=== PATIENT | male | born 1960 | race Caucasian/White ===

== ENCOUNTER 2016-06-18 23:27 | Emergency (ER) | payer BC ==
[~2016-06-18 23:27] MED LIST: ACET65TA OR; AMLO10TA2 PO; ASPI81TA85 PO; CARV6.25 PO; GUAIFENESIN ER PO; LEVA500T OR; LISI-538 PO; LISI20TA5 OR; LOPR50TA OR; METO25TA2 OR
--- NOTE | 2016-06-19 00:48 | EDDOCDS ---
Physician Documentation [facility] Name: Dat Horne Age: 56 yrs Sex: Male : 1960 Arrival Date: 06/18/2016 Time: 23:27 Bed I5 / M5 Private MD: Mary Londono A Disposition: 06/19/16 00:39 Discharged to Home/Self Care. Impression: Contusion of foot. - Condition is Stable. - Discharge Instructions: Foot Contusion, [id number]. - Medication Reconciliation, Local Pharmacy Hours form. - Follow up: Orthopaedics, [facility]; When: Call to arrange an appointment; Reason: Further diagnostic work-up, Recheck today's complaints, Continuance of care. - Problem is new. - Symptoms are unchanged. Historical: - Allergies: PENICILLINS; - Home Meds: 1. lisinopril 20 mg Oral tab 1 tab twice a day 2. carvedilol 6.25 mg oral tab 1 tab 2 times per day 3. amlodipine 10 mg Oral tab 1 tab once daily 4. aspirin 325 mg Oral TbEC 1 tab once daily 5. valsartan-hydrochlorothiazide 320-12.5 mg oral tab 1 tab once daily - PMHx: Hypertension; Atrial Fib; - PSHx: cardaic ablation; tubes in ears; - Social history: Smoking status: Patient states was never smoker of tobacco. No barriers to communication noted, The patient speaks fluent Paraguayan, Speaks appropriately for age. - Family history: Not pertinent. - : The pt / caregiver states he / she is not on anticoagulants. Home medication list is obtained from the patient. - Exposure Risk Screening:: None identified. Vital Signs: 06/18 23:30 BP 151 / 75; Pulse 89; Resp 18 S; Temp 97.7(O); Pulse Ox 99% on R/A; Weight 111.13 kg / dd6 245 lbs (R); Height 6 ft. 2 in. (187.96 cm) (R); 23:30 Body Mass Index 31.46 (111.13 kg, 187.96 cm) dd6 MDM: 23:56 Ankle, Complete Ordered. EDMS 06/19 00:36 Crutches ordered. btw 00:46 Financial registration complete. hs2 Signatures: Dispatcher [employer] EDMS Sirisha Farrar, RN RN kmg1 Orville Rojas PA PA btw Becker, Joshua,RN RN tariqb Sharon Washington,CECIL MICHAUDN slJenn Muniz, Reg Reg hs2 MTDD
--- NOTE | 2016-06-19 00:48 | EDDOCDS ---
Nurse's Notes [facility] Name: Dat Horne Age: 56 yrs Sex: Male : 1960 Arrival Date: 06/18/2016 Time: 23:27 Bed I5 / M5 Private MD: Mary Londono A Diagnosis: Contusion of foot Presentation: 06/18 23:42 Presenting complaint: Patient states: Patient reports falling off ladder. Incident kmg1 occurred 1 p.m. this afternoon. Patient in [place], at new office opening up. Patient reports inability to place pressure on area. The patients lower extremity appears normal on examination. Adult Sepsis Screening: The patient does not have new or worsening altered mentation. Patient's respiratory rate is less than 22. Systolic blood pressure is greater than 100. Patient has a qSOFA score of 0- Negative Sepsis Screen. Suicide/Homicide risk assessment- the patient denies having any suicidal and/or homicidal ideations and does not present with any other emotional, behavioral or mental health complaints. Status: Patient is not a rehabilitation services director or dependent. Transition of care: patient was not received from another setting of care. 23:42 Acuity: QUENTIN Level 4 kmg1 23:42 Method Of Arrival: Wheelchair kmg1 Triage Assessment: 23:51 General: Appears in no apparent distress, Behavior is appropriate for age, cooperative. jmb Pain: Location: left lateral ankle Pain currently is 8 out of 10 on a pain scale. Pt Declines HIV testing. Neurological: Level of Consciousness is awake, alert, obeys commands, Oriented to person, place, time, Speech is normal, Facial symmetry appears normal, Facial symmetry: tongue is midline. Respiratory: Airway is patent Respiratory effort is even, unlabored, Respiratory pattern is regular, symmetrical. Derm: Skin is pink, warm & dry. Musculoskeletal: Capillary refill < 3 seconds No deformity noted Reports Pain is 8 out of 10 on a pain scale. Historical: - Allergies: PENICILLINS; - Home Meds: 1. lisinopril 20 mg Oral tab 1 tab twice a day 2. carvedilol 6.25 mg oral tab 1 tab 2 times per day 3. amlodipine 10 mg Oral tab 1 tab once daily 4. aspirin 325 mg Oral TbEC 1 tab once daily 5. valsartan-hydrochlorothiazide 320-12.5 mg oral tab 1 tab once daily - PMHx: Hypertension; Atrial Fib; - PSHx: cardaic ablation; tubes in ears; - Social history: Smoking status: Patient states was never smoker of tobacco. No barriers to communication noted, The patient speaks fluent Frisian, Speaks appropriately for age. - Family history: Not pertinent. - : The pt / caregiver states he / she is not on anticoagulants. Home medication list is obtained from the patient. - Exposure Risk Screening:: None identified. Screenin/29 00:45 Screening information is obtained from the patient. Fall risk: No risks identified. slm Assistance ADL's: requires no assistance with activities of daily living. Abuse/DV Screen: The patient / caregiver reports he/she is: not in a situation that causes fear, pain or injury. Nutritional screening: No deficits noted. Advance Directives: Currently, there is no health care proxy. There is no active DNR order. There is no living will. There is no Power of Company Controller. Advance directive information has not previously been placed in an [facility] medical record. Further advance directive information is declined. home support is adequate. Assessment: 00:44 General: Appears in no apparent distress, comfortable, Behavior is cooperative. Pain: slm Location: left lateral ankle. Musculoskeletal: Circulation, motion, and sensation intact. 00:46 Musculoskeletal: Capillary refill < 3 seconds Signs and Symptoms of Compartment slm Syndrome: no signs of compartment syndrome. Vital Signs: 06/18 23:30 BP 151 / 75; Pulse 89; Resp 18 S; Temp 97.7(O); Pulse Ox 99% on R/A; Weight 111.13 kg dd6 (R); Height 6 ft. 2 in. (187.96 cm) (R); 23:30 Body Mass Index 31.46 (111.13 kg, 187.96 cm) dd6 Vitals: 23:30 Log In Time: June 18, 2016 at 23:28. dd6 ED Course: 23:30 Patient visited by James Blanco PCA. dd6 23:30 Mary Londono is Private Physician. dd6 23:30 Patient moved to Waiting dd6 23:31 Patient moved to Pre RCE dd6 23:44 Triage Initiated kmg1 06/19 00:27 Orville Rojas PA is PHCP. btw 00:27 Kumar Barba DO is Attending Physician. btw 00:27 Patient visited by Orville Rojas PA. btw 00:27 [facility] btw 00:46 Patient visited by Sharon Washington LPN. slm 00:46 The patient / caregiver is instructed regarding the plan of care and ED course. Patient slm has correct armband on for positive identification. Bed in low position. Call light in reach. Side rails up X 1. 00:46 No IV's were initiated during this patient's visit. No procedures done that require slm assistance. Order Results: There are currently no results for this order. Outcome: 00:39 Discharge ordered by Provider. btw 00:45 Discharge Assessment: Patient awake, alert and oriented x 3. No cognitive and/or slm functional deficits noted. Patient verbalized understanding of disposition instructions. patient administered narcotics - no. The following High Risk Discharge criteria are identified: None. Condition: good. Discharge instructions given to patient, Instructed on discharge instructions, follow up and referral plans. Demonstrated understanding of instructions, crutch walking, Pt was receptive of discharge instructions/ teaching. No special radiology studies were completed. Property :Personal belongings accompany Pt. 00:47 Patient left the ED. slm Signatures: Sirisha Farrar, RN RN kmg1 James Blanco, [employer] dd6 Orville Rojas PA PA btw Becker, Joshua, RN RN jmb McIntyre, Stephanie, LPN LPN slm MTDD
--- NOTE | 2016-06-20 11:09 | REP ---
Left ankle four views : There is no fracture or dislocation. Mineralization and joint spaces are normal. There are no calcifications or foreign bodies. Impression: Negative left ankle . Signed by Mor Garcia MD 06/19/2016 08:57 A
--- NOTE | 2016-06-21 01:48 | EDDOCDS ---
Physician Documentation [facility] Name: Dat Horne Age: 56 yrs Sex: Male : 1960 Arrival Date: 06/18/2016 Time: 23:27 Bed I5 / M5 Private MD: Mary Londono A Disposition: 06/19/16 00:39 Discharged to Home/Self Care. Impression: Contusion of foot. - Condition is Stable. - Discharge Instructions: Foot Contusion, [id number]. - Medication Reconciliation, Local Pharmacy Hours form. - Follow up: Orthopaedics, [facility]; When: Call to arrange an appointment; Reason: Further diagnostic work-up, Recheck today's complaints, Continuance of care. - Problem is new. - Symptoms are unchanged. Historical: - Allergies: PENICILLINS; - Home Meds: 1. lisinopril 20 mg Oral tab 1 tab twice a day 2. carvedilol 6.25 mg oral tab 1 tab 2 times per day 3. amlodipine 10 mg Oral tab 1 tab once daily 4. aspirin 325 mg Oral TbEC 1 tab once daily 5. valsartan-hydrochlorothiazide 320-12.5 mg oral tab 1 tab once daily - PMHx: Hypertension; Atrial Fib; - PSHx: cardaic ablation; tubes in ears; - Social history: Smoking status: Patient states was never smoker of tobacco. No barriers to communication noted, The patient speaks fluent Malawian, Speaks appropriately for age. - Family history: Not pertinent. - : The pt / caregiver states he / she is not on anticoagulants. Home medication list is obtained from the patient. - Exposure Risk Screening:: None identified. Vital Signs: 06/18 23:30 BP 151 / 75; Pulse 89; Resp 18 S; Temp 97.7(O); Pulse Ox 99% on R/A; Weight 111.13 kg / dd6 245 lbs (R); Height 6 ft. 2 in. (187.96 cm) (R); 23:30 Body Mass Index 31.46 (111.13 kg, 187.96 cm) dd6 MDM: 23:56 Ankle, Complete Ordered. EDMS 06/19 00:36 Crutches ordered. btw 00:46 Financial registration complete. hs2 00:49 COUNTS INCLUDE 234 BEDS AT THE [facility] Payment Agreement was scanned into [employer] and attached to record. hs2 21:29 T-Sheet-- Draft Copy was scanned into [employer] and attached to record. klr Signatures: Dispatcher [employer] EDSirisha Son RN RN kmg1 Orville Rojas PA PA btw Becker, Joshua, RN RN Sharon Bowser,CECIL MEDICAL TECH slm Jenn Atkins, Reg Reg hs2 Sonya Melo klr The chart was reviewed and I authenticate all verbal orders and agree with the evaluation and treatment provided.Attachments: 00:49 COUNTS INCLUDE 234 BEDS AT THE [facility] Payment Agreement hs2 21:29 T-Sheet-- Draft Copy klr Chart Complete MTDD
--- NOTE | 2016-06-21 01:48 | EDDOCDS ---
Nurse's Notes [facility] Name: Dat Horne Age: 56 yrs Sex: Male : 1960 Arrival Date: 06/18/2016 Time: 23:27 Bed I5 / M5 Private MD: Mary Londono A Diagnosis: Contusion of foot Presentation: 06/18 23:42 Presenting complaint: Patient states: Patient reports falling off ladder. Incident kmg1 occurred 1 p.m. this afternoon. Patient in [place], at new office opening up. Patient reports inability to place pressure on area. The patients lower extremity appears normal on examination. Adult Sepsis Screening: The patient does not have new or worsening altered mentation. Patient's respiratory rate is less than 22. Systolic blood pressure is greater than 100. Patient has a qSOFA score of 0- Negative Sepsis Screen. Suicide/Homicide risk assessment- the patient denies having any suicidal and/or homicidal ideations and does not present with any other emotional, behavioral or mental health complaints. Status: Patient is not a administrative services director or dependent. Transition of care: patient was not received from another setting of care. 23:42 Acuity: QUENTIN Level 4 kmg1 23:42 Method Of Arrival: Wheelchair kmg1 Triage Assessment: 23:51 General: Appears in no apparent distress, Behavior is appropriate for age, cooperative. jmb Pain: Location: left lateral ankle Pain currently is 8 out of 10 on a pain scale. Pt Declines HIV testing. Neurological: Level of Consciousness is awake, alert, obeys commands, Oriented to person, place, time, Speech is normal, Facial symmetry appears normal, Facial symmetry: tongue is midline. Respiratory: Airway is patent Respiratory effort is even, unlabored, Respiratory pattern is regular, symmetrical. Derm: Skin is pink, warm & dry. Musculoskeletal: Capillary refill < 3 seconds No deformity noted Reports Pain is 8 out of 10 on a pain scale. Historical: - Allergies: PENICILLINS; - Home Meds: 1. lisinopril 20 mg Oral tab 1 tab twice a day 2. carvedilol 6.25 mg oral tab 1 tab 2 times per day 3. amlodipine 10 mg Oral tab 1 tab once daily 4. aspirin 325 mg Oral TbEC 1 tab once daily 5. valsartan-hydrochlorothiazide 320-12.5 mg oral tab 1 tab once daily - PMHx: Hypertension; Atrial Fib; - PSHx: cardaic ablation; tubes in ears; - Social history: Smoking status: Patient states was never smoker of tobacco. No barriers to communication noted, The patient speaks fluent Japanese, Speaks appropriately for age. - Family history: Not pertinent. - : The pt / caregiver states he / she is not on anticoagulants. Home medication list is obtained from the patient. - Exposure Risk Screening:: None identified. Screenin/29 00:45 Screening information is obtained from the patient. Fall risk: No risks identified. slm Assistance ADL's: requires no assistance with activities of daily living. Abuse/DV Screen: The patient / caregiver reports he/she is: not in a situation that causes fear, pain or injury. Nutritional screening: No deficits noted. Advance Directives: Currently, there is no health care proxy. There is no active DNR order. There is no living will. There is no Power of Field Reviewer. Advance directive information has not previously been placed in an [facility] medical record. Further advance directive information is declined. home support is adequate. Assessment: 00:44 General: Appears in no apparent distress, comfortable, Behavior is cooperative. Pain: slm Location: left lateral ankle. Musculoskeletal: Circulation, motion, and sensation intact. 00:46 Musculoskeletal: Capillary refill < 3 seconds Signs and Symptoms of Compartment slm Syndrome: no signs of compartment syndrome. Vital Signs: 06/18 23:30 BP 151 / 75; Pulse 89; Resp 18 S; Temp 97.7(O); Pulse Ox 99% on R/A; Weight 111.13 kg dd6 (R); Height 6 ft. 2 in. (187.96 cm) (R); 23:30 Body Mass Index 31.46 (111.13 kg, 187.96 cm) dd6 Vitals: 23:30 Log In Time: June 18, 2016 at 23:28. dd6 ED Course: 23:30 Patient visited by James Blanco PCA. dd6 23:30 Mary Londono is Private Physician. dd6 23:30 Patient moved to Waiting dd6 23:31 Patient moved to Pre RCE dd6 23:44 Triage Initiated kmg1 06/19 00:27 Orville Rojas PA is PHCP. btw 00:27 Kumar Barba DO is Attending Physician. btw 00:27 Patient visited by Orville Rojas PA. btw 00:27 Patient moved to I / [facility] btw 00:46 Patient visited by Sharon Washington LPN. slm 00:46 The patient / caregiver is instructed regarding the plan of care and ED course. Patient slm has correct armband on for positive identification. Bed in low position. Call light in reach. Side rails up X 1. 00:46 No IV's were initiated during this patient's visit. No procedures done that require slm assistance. 00:49 [facility] [place] [place] Payment Agreement was scanned into [employer] and attached to record. hs2 21:29 T-Sheet-- Draft Copy was scanned into [employer] and attached to record. klr 01 11:19 Ankle, Complete Returned. EDMS Order Results: Radiology Order: Ankle, Complete Test: Ankle, Complete REASON FOR EXAMINATION: Trauma; Left ankle four views :; ; There is no fracture or dislocation.; ; Mineralization and joint spaces are normal.; ; There are no calcifications or foreign bodies.; ; Impression:; ; Negative left ankle .; ; ; Signed by; Mor Garcia MD 06/19/2016 08:57 A; Outcome: 06/19 00:39 Discharge ordered by Provider. btw 00:45 Discharge Assessment: Patient awake, alert and oriented x 3. No cognitive and/or slm functional deficits noted. Patient verbalized understanding of disposition instructions. patient administered narcotics - no. The following High Risk Discharge criteria are identified: None. Condition: good. Discharge instructions given to patient, Instructed on discharge instructions, follow up and referral plans. Demonstrated understanding of instructions, crutch walking, Pt was receptive of discharge instructions/ teaching. No special radiology studies were completed. Property :Personal belongings accompany Pt. 00:47 Patient left the ED. slm Signatures: [facility] Sirisha Farrar, JOSS RN kmg1 James Blanco, COMMERCIAL ACCOUNT MANAGER COMMERCIAL ACCOUNT MANAGER dd6 Orville Rojas PA PA btw Dusty Andujar RN RN jmb McIntyre, Stephanie, LPN LPN slm Jenn Atkins, Reg Reg hs2 RedSonya wall Chart Complete CAROLD
--- NOTE | 2016-06-21 01:48 | EDDOCDS ---
Physician Documentation [facility] Name: Dat Horne Age: 56 yrs Sex: Male : 1960 Arrival Date: 06/18/2016 Time: 23:27 Bed I5 / M5 Private MD: Mary Londono A Disposition: 06/19/16 00:39 Discharged to Home/Self Care. Impression: Contusion of foot. - Condition is Stable. - Discharge Instructions: Foot Contusion, [id number]. - Medication Reconciliation, Local Pharmacy Hours form. - Follow up: Orthopaedics, [facility]; When: Call to arrange an appointment; Reason: Further diagnostic work-up, Recheck today's complaints, Continuance of care. - Problem is new. - Symptoms are unchanged. Historical: - Allergies: PENICILLINS; - Home Meds: 1. lisinopril 20 mg Oral tab 1 tab twice a day 2. carvedilol 6.25 mg oral tab 1 tab 2 times per day 3. amlodipine 10 mg Oral tab 1 tab once daily 4. aspirin 325 mg Oral TbEC 1 tab once daily 5. valsartan-hydrochlorothiazide 320-12.5 mg oral tab 1 tab once daily - PMHx: Hypertension; Atrial Fib; - PSHx: cardaic ablation; tubes in ears; - Social history: Smoking status: Patient states was never smoker of tobacco. No barriers to communication noted, The patient speaks fluent Cymraes, Speaks appropriately for age. - Family history: Not pertinent. - : The pt / caregiver states he / she is not on anticoagulants. Home medication list is obtained from the patient. - Exposure Risk Screening:: None identified. Vital Signs: 06/18 23:30 BP 151 / 75; Pulse 89; Resp 18 S; Temp 97.7(O); Pulse Ox 99% on R/A; Weight 111.13 kg / dd6 245 lbs (R); Height 6 ft. 2 in. (187.96 cm) (R); 23:30 Body Mass Index 31.46 (111.13 kg, 187.96 cm) dd6 MDM: 23:56 Ankle, Complete Ordered. EDMS 06/19 00:36 Crutches ordered. btw 00:46 Financial registration complete. hs2 00:49 [facility] Payment Agreement was scanned into [employer] and attached to record. hs2 21:29 T-Sheet-- Draft Copy was scanned into [employer] and attached to record. klr Signatures: Dispatcher [employer] EDSirisha Son RN RN kmg1 Orville Rojas PA PA btw Becker, Joshua, RN RN Sharon Bowser,CECIL MANAGER FRONT OFFICE slm Jenn Atkins, Reg Reg hs2 Sonya Melo klr The chart was reviewed and I authenticate all verbal orders and agree with the evaluation and treatment provided.Attachments: 00:49 [facility] Payment Agreement hs2 21:29 T-Sheet-- Draft Copy klr Chart Complete MTDD
== END 2016-06-19 00:47 | disposition home or self-care (01) ==
LOC: M ED 23:27
DX: S90.32XA Contusion of left foot, initial encounter (principal); W11.XXXA Fall on and from ladder, initial encounter; Y92.019 Unspecified place in single-family (private) house as the place of occurrence of the external cause; Y93.89 Activity, other specified; Y99.8 Other external cause status; I10 Essential (primary) hypertension; I48.91 Unspecified atrial fibrillation; Z79.82 Long term (current) use of aspirin; Z79.899 Other long term (current) drug therapy; Z88.0 Allergy status to penicillin

== ENCOUNTER → 2017-02-03 | Outpatient (REF) | payer BC ==
[2017-02-03 12:45] LABS: CREATININE FOR GFR 1.32 MG/DL (0.70-1.30); GLOMERULAR FILTRATION RATE 59.9 (>56); POTASSIUM SERUM 3.8 MEQ/L (3.5-5.1)
[2017-02-10 15:24] LABS: ALDOSTERONE 8.4 ng/dL (0.0-30.0)
== END ==
LOC: M LAB REF 10:16
PROVIDERS: ATTEND Internal Medicine Cardiovascular Disease
DX: I10 Essential (primary) hypertension (principal)

== ENCOUNTER → 2017-05-26 | Outpatient (CLI) | payer BC | LOC: M WUC 18:53 | DX: M25.511 Pain in right shoulder (principal) | CPT/HCPCS: 73030 ==

== ENCOUNTER → 2017-07-24 | Outpatient (CLI) | payer BC | LOC: M WUC 18:46 | DX: M19.011 Primary osteoarthritis, right shoulder (principal) | CPT/HCPCS: 73030 ==

== ENCOUNTER → 2017-12-12 | Outpatient (REF) | payer BC ==
[2017-12-12 12:58] LABS: TOTAL 25(OH) VITAMIN D 39.4 NG/ML (30.0-100.0)
[2017-12-12 13:00] LABS: ALBUMIN 4.3 GM/DL (3.2-5.2); ALBUMIN/GLOBULIN RATIO 1.48 (1.00-1.93); ALKALINE PHOSPHATASE 67 U/L (45-117); ALT/SGPT 32 U/L (12-78); ANION GAP 7 MEQ/L (8-16); AST/SGOT 11 U/L (7-37); BILIRUBIN,TOTAL 0.4 MG/DL (0.2-1.0); BLOOD UREA NITROGEN 18 MG/DL (7-18); CALCIUM LEVEL 8.8 MG/DL (8.5-10.1); CARBON DIOXIDE LEVEL 29 MEQ/L (21-32); CHLORIDE LEVEL 106 MEQ/L (98-107); CHOLESTEROL LEVEL 157 MG/DL (<200); CHOLESTEROL RISK RATIO 4.025 (<5); GLOMERULAR FILTRATION RATE > 60.0 (>56); GLUCOSE, FASTING 86 MG/DL (70-100); HDL CHOLESTEROL 39 MG/DL (>40); LDL CHOLESTEROL 91.6 MG/DL (<100); NON-HDL-C 118 MG/DL; SODIUM LEVEL 142 MEQ/L (136-145); TOTAL PROTEIN 7.2 GM/DL (6.4-8.2); TRIGLYCERIDES LEVEL 132 MG/DL (<150)
== END ==
LOC: M LABDRAW1 11:30
DX: E78.2 Mixed hyperlipidemia (principal); E55.9 Vitamin D deficiency, unspecified; I10 Essential (primary) hypertension

== ENCOUNTER → 2018-02-23 | Outpatient (REF) | payer BC ==
[2018-02-23 12:49] LABS: ANION GAP 7 MEQ/L (8-16); BLOOD UREA NITROGEN 23 MG/DL (7-18); CALCIUM LEVEL 8.9 MG/DL (8.5-10.1); CARBON DIOXIDE LEVEL 32 MEQ/L (21-32); CHLORIDE LEVEL 100 MEQ/L (98-107); CREATININE FOR GFR 1.47 MG/DL (0.70-1.30); GLOMERULAR FILTRATION RATE 52.8 (>56); GLUCOSE, FASTING 94 MG/DL (70-100); SODIUM LEVEL 139 MEQ/L (136-145)
== END ==
LOC: M LABDRAW1 11:53
DX: I10 Essential (primary) hypertension (principal)
CPT/HCPCS: 80048

== ENCOUNTER → 2018-10-19 | Outpatient (REF) | payer BC ==
[~2018-10-19] MED LIST changes: -AMLO10TA2 PO; +AMLO10TA5 PO
[2018-10-19 12:52] LABS: BLOOD UREA NITROGEN 27 MG/DL (7-18); CALCIUM LEVEL 9.3 MG/DL (8.5-10.1); CARBON DIOXIDE LEVEL 29 MEQ/L (21-32); CHLORIDE LEVEL 105 MEQ/L (98-107); CREATININE FOR GFR 1.25 MG/DL (0.70-1.30); GLOMERULAR FILTRATION RATE > 60.0 (>56); GLUCOSE, FASTING 94 MG/DL (70-100); POTASSIUM SERUM 3.8 MEQ/L (3.5-5.1); SODIUM LEVEL 139 MEQ/L (136-145)
== END ==
LOC: M LABDRAW1 11:54
PROVIDERS: ATTEND Internal Medicine Cardiovascular Disease
DX: I10 Essential (primary) hypertension (principal)

== ENCOUNTER → 2019-05-21 | Outpatient (REF) | payer BC ==
[2019-05-21 12:09] LABS: BASO % 0.7 % (0.0-1.0); EOS # 0.1 10^3/uL (0.0-0.5); EOS % 2.4 % (0.0-3.0); HEMATOCRIT 43.2 % (42.0-52.0); HEMOGLOBIN 14.3 g/dl (13.5-17.5); LYMPH # 1.2 10^3/uL (1.5-5.0); LYMPH % 26.7 % (24.0-44.0); MEAN CORPUSCULAR HEMOGLOBIN 29.4 pg (27.0-33.0); MEAN CORPUSCULAR HGB CONC 33.1 g/dl (32.0-36.5); MEAN CORPUSCULAR VOLUME 88.7 fl (80.0-96.0); MONO # 0.3 10^3/uL (0.0-0.8); MONO % 7.6 % (0.0-5.0); NEUTROPHILS # 2.8 10^3/uL (1.5-8.5); NEUTROPHILS % 62.2 % (36.0-66.0); PLATELET COUNT, AUTOMATED 198 10^3/uL (150-450); RED BLOOD COUNT 4.87 10^6/uL (4.30-6.10); WHITE BLOOD COUNT 4.5 10^3/uL (4.0-10.0)
[2019-05-21 12:17] LABS: CALCIUM LEVEL 8.6 MG/DL (8.5-10.1); CREATININE FOR GFR 1.31 MG/DL (0.70-1.30); POTASSIUM SERUM 3.7 MEQ/L (3.5-5.1)
[2019-05-21 12:18] LABS: ALBUMIN 4.1 GM/DL (3.2-5.2); BILIRUBIN,TOTAL 0.4 MG/DL (0.2-1.0); CHOLESTEROL RISK RATIO 4.783 (<5); TOTAL PROTEIN 6.7 GM/DL (6.4-8.2)
[2019-05-21 12:23] LABS: TOTAL 25(OH) VITAMIN D 22.2 NG/ML (30.0-100.0)
== END ==
LOC: M LABDRAW1 11:55
PROVIDERS: ATTEND Physician Assistant
DX: I10 Essential (primary) hypertension (principal); E78.2 Mixed hyperlipidemia; E55.9 Vitamin D deficiency, unspecified; G47.33 Obstructive sleep apnea (adult) (pediatric)

== ENCOUNTER → 2020-03-02 | Outpatient (CLI) | payer BC ==
[~2020-03-02] MED LIST changes: -AMLO10TA5 PO; +AMLO1TAB25 PO; +ASPI325T55 PO; -ASPI81TA85 PO; +ASPI81TA86 PO; +CHLO25TA PO; +DILT1CAP PO; +EPLE25TA PO; +IRBE300T7 PO; +OMEP1CAP73 PO
== END ==
LOC: M LABSMTC 09:33
PROVIDERS: ATTEND Anesthesiology
DX: Z01.812 Encounter for preprocedural laboratory examination (principal); Z20.828 Contact with and (suspected) exposure to other viral communicable diseases
CPT/HCPCS: C9803; U0003

== ENCOUNTER 2020-03-06 07:41 | Day surgery (SDC) | payer BC ==
[~2020-03-06] VITALS: Ht 185.4 cm; Wt 108.9 kg
[~2020-03-06 07:41] MED LIST changes: +LR 1,000 ML IV ONE
[2020-03-06] MEDS ORDERED: BUPIVACAINE/EPIN 0.5% 30 ML VIAL As Ordered ONE (09:33)
[2020-03-06] MEDS ORDERED: LIDOCAINE 2% 100MG/5ML SDV (FOR ANES.) As Ordered ONE (09:48)
[2020-03-06] MEDS ORDERED: propofoL 200 MG/20 ML VIAL As Ordered ONE (09:48)
[2020-03-06] MEDS ORDERED: ROCURONIUM BROMIDE 50 MG/5 ML VIAL As Ordered ONE (09:48)
[2020-03-06] MEDS ORDERED: fentaNYL 250 MCG/5 ML INJECTION (J3010) As Ordered ONE (09:48)
[2020-03-06] MEDS ORDERED: MIDAZOLAM INJ 2MG/2ML VIAL (J2250 PER 1MG) As Ordered ONE (09:49)
[2020-03-06] MEDS ORDERED: ePHEDrine SULFATE 25 MG/5 ML(5MG/ML) SYRINGE As Ordered ONE (10:28)
[2020-03-06] MEDS ORDERED: dexameTHASONE 4 MG/ML 1ML VIAL (J1100 PER 1MG) As Ordered ONE (10:41)
[2020-03-06] MEDS ORDERED: ONDANSETRON 4MG/2ML VIAL As Ordered ONE (10:41)
[2020-03-06] MEDS ORDERED: KETOROLAC 60MG 2ML VIAL As Ordered ONE (10:41)
[2020-03-06] MEDS ORDERED: ACETAMINOPHEN 1000MG 100ML IV BTL (OFIRMEV) (J0131 PER 10MG) As Ordered ONE (10:42)
[2020-03-06] MEDS ORDERED: SUGAMMADEX SODIUM 500 MG/5 ML VIAL (BRIDION) As Ordered ONE (10:45)
[2020-03-06] MEDS ORDERED: oxyCODONE 5MG TAB As Ordered ONE (11:36)
[2020-03-06] MEDS ORDERED: MORPHINE 2 MG/ML 1ML VIAL (J2270) IV PRN (12:00)
[2020-03-06] MEDS ORDERED: NORCO, ANEXSIA 5/325MG TABLET (HYDROcodone/ACETAMINOPHEN) PO PRN (12:00)
[2020-03-06] MEDS ORDERED: fentaNYL 100 MCG/2 ML INJECTION (J3010) IV PRN (12:00)
[2020-03-06] MEDS ORDERED: oxyCODONE 5MG TAB PO PRN (12:00)
[2020-03-06] MEDS ORDERED: ONDANSETRON 4MG/2ML VIAL IV PRN (12:00)
[2020-03-06] MEDS ORDERED: LR 1,000 ML IV SCH (12:00)
[2020-03-06] MEDS ORDERED: METOCLOPRAMIDE INJ 10MG/2ML VIAL (J2765 PER 1) IV PRN (12:00)
[2020-03-06 13:03] VITALS: BP 113/63
--- NOTE | 2020-03-09 08:44 | RO ---
DATE OF OPERATION: 03/06/2020 PREOPERATIVE DIAGNOSIS: Symptomatic cholelithiasis. POSTOPERATIVE DIAGNOSIS: Symptomatic cholelithiasis. PROCEDURE: Robotic cholecystectomy. SURGEON: Mor Sequeira DO ASSIST: None. ANESTHESIA: General. EBL: 15. COMPLICATIONS: None. INDICATIONS FOR PROCEDURE: The patient is a 60-year-old male who presents with right upper quadrant pain and found to have symptomatic cholelithiasis. Recommendation was to proceed with a robotic cholecystectomy. Risks and benefits of the procedure not limited to but including bleeding, infection, hernia formation, damage to surrounding structures and need for further surgery were discussed in detail with the patient. Informed consent was obtained and procedure was planned. PROCEDURE: The patient was brought back to operating room 7. After sufficient sedation, the abdomen was sterilely prepped and draped. Next, time out was done to confirm proper patient and proper procedure. Following that, an 8 mm incision was made in the left upper quadrant, Veress needle was inserted, and the abdomen was insufflated to 15 mmHg. Veress needle was then removed and an 8 mm Optiview port was used to gain access to the abdomen. Once the abdomen was entered, two more ports were placed, one in the midline and one in the right mid abdomen and then another one in the right upper quadrant laterally. The ports were then connected to the robot. The abdomen was examined from the console. The fundus of the gallbladder was elevated up towards the right shoulder. Cystic duct and cystic artery were carefully dissected free using combination of blunt and sharp dissection. Once they were both identified they were both doubly clipped and cut. The gallbladder was then dissected free from the gallbladder fossa using electrocautery. It was then placed inside of a 5 mm Endo Catch bag and brought out through the right lateral port site. Once the gallbladder was removed, the abdomen was examined. The fascia and the peritoneum at the right lateral port site were then closed from inside using running 3-0 V-Loc suture. Once that was completed, the abdomen was desufflated. Skin incisions were closed with 4-0 Vicryl subcuticular sutures. The abdomen was cleaned and dried. Steri-Strips, 4 x 4 and tape were applied. [facility]
== END 2020-03-06 14:50 | disposition home or self-care (01) ==
LOC: M SDC 07:41
PROVIDERS: ATTEND Surgery
DX: K80.10 Calculus of gallbladder with chronic cholecystitis without obstruction (principal); I10 Essential (primary) hypertension; I48.91 Unspecified atrial fibrillation; G47.33 Obstructive sleep apnea (adult) (pediatric); Z79.82 Long term (current) use of aspirin; Z79.899 Other long term (current) drug therapy; Z88.0 Allergy status to penicillin
CPT/HCPCS: 47562; 88304; J0131; J1100; J1885; J2250; J2405; J3010; S2900

== ENCOUNTER → 2020-06-09 | Outpatient (CLI) | payer BC ==
[~2020-06-09] MED LIST changes: -LISI-538 PO; +LISI20TA33 PO; -LR 1,000 ML IV ONE
[2020-06-09 10:33] LABS: BLOOD UREA NITROGEN 28 MG/DL (7-18); CALCIUM LEVEL 8.9 MG/DL (8.5-10.1); CARBON DIOXIDE LEVEL 32 MEQ/L (21-32); CHLORIDE LEVEL 107 MEQ/L (98-107); CHOLESTEROL LEVEL 175 MG/DL (<200); CREATININE FOR GFR 1.26 MG/DL (0.70-1.30); GLOMERULAR FILTRATION RATE > 60.0 (>56); GLUCOSE, FASTING 107 MG/DL (70-100); HDL CHOLESTEROL 35 MG/DL (>40); LDL CHOLESTEROL 114 MG/DL (<100); NON-HDL-C 140 MG/DL; POTASSIUM SERUM 4.1 MEQ/L (3.5-5.1); SODIUM LEVEL 142 MEQ/L (136-145); TRIGLYCERIDES LEVEL 128 MG/DL (<150)
== END ==
LOC: M WUC 08:38
PROVIDERS: ATTEND Physician Assistant Medical
DX: E78.2 Mixed hyperlipidemia (principal); E55.9 Vitamin D deficiency, unspecified

== ENCOUNTER → 2020-11-23 | Outpatient (CLI) | payer BC ==
[2020-11-23 14:25] LABS: HEMOGLOBIN 14.2 g/dl (13.5-17.5); MEAN CORPUSCULAR HEMOGLOBIN 29.3 pg (27.0-33.0); MEAN CORPUSCULAR HGB CONC 33.8 g/dl (32.0-36.5); MEAN CORPUSCULAR VOLUME 86.6 fl (80.0-96.0); PLATELET COUNT, AUTOMATED 211 10^3/uL (150-450); RED BLOOD COUNT 4.85 10^6/uL (4.30-6.10); WHITE BLOOD COUNT 6.7 10^3/uL (4.0-10.0)
[2020-11-23 15:04] LABS: BLOOD UREA NITROGEN 26 MG/DL (7-18); CALCIUM LEVEL 8.6 MG/DL (8.5-10.1); CARBON DIOXIDE LEVEL 27 MEQ/L (21-32); CHLORIDE LEVEL 107 MEQ/L (98-107); CREATININE FOR GFR 1.13 MG/DL (0.70-1.30); GLOMERULAR FILTRATION RATE > 60.0 (>56); GLUCOSE, FASTING 88 MG/DL (70-100); POTASSIUM SERUM 3.7 MEQ/L (3.5-5.1); SODIUM LEVEL 140 MEQ/L (136-145)
== END ==
LOC: M WUC 10:20
PROVIDERS: ATTEND Internal Medicine Cardiovascular Disease
DX: I48.0 Paroxysmal atrial fibrillation (principal)

== ENCOUNTER → 2021-02-04 | Outpatient (CLI) | payer BC ==
[2021-02-04 11:45] LABS: APPEARANCE, URINE CLEAR (CLEAR); BILIRUBIN, URINE AUTO NEGATIVE (NEGATIVE); BLOOD, URINE BLOOD NEGATIVE (NEGATIVE); COLOR, URINE YELLOW (YELLOW); GLUCOSE, URINE (UA) AUTO NEGATIVE (NEGATIVE); KETONE, URINE AUTO NEGATIVE (NEGATIVE); LEUKOCYTE ESTERASE, URINE AUTO NEGATIVE (NEGATIVE); NITRITE, URINE AUTO NEGATIVE (NEGATIVE); PROTEIN, URINE AUTO NEGATIVE (NEGATIVE); SPECIFIC GRAVITY URINE AUTO 1.028 (1.002-1.035); UROBILINOGEN, URINE AUTO 0.2 mg/dL (0.0-2.0)
[2021-02-04 11:52] LABS: BACTERIA, URINE AUTO NEGATIVE (NEGATIVE); MUCUS, URINE SMALL (NEGATIVE); RBC, URINE AUTO 3 /HPF (0-3); SQUAMOUS EPITHELIAL CELL UR AU 0 /HPF (0-6); WBC, URINE AUTO 1 /HPF (0-3)
[2021-02-04 12:06] LABS: BASO % 0.7 % (0.0-1.0); EOS # 0.2 10^3/uL (0.0-0.5); EOS % 3.2 % (0.0-3.0); HEMATOCRIT 42.1 % (42.0-52.0); HEMOGLOBIN 14.3 g/dl (13.5-17.5); LYMPH # 1.4 10^3/uL (1.5-5.0); LYMPH % 25.3 % (24.0-44.0); MEAN CORPUSCULAR HEMOGLOBIN 29.8 pg (27.0-33.0); MEAN CORPUSCULAR VOLUME 87.7 fl (80.0-96.0); MONO # 0.5 10^3/uL (0.0-0.8); MONO % 9.3 % (2.0-8.0); NEUTROPHILS # 3.4 10^3/uL (1.5-8.5); PLATELET COUNT, AUTOMATED 256 10^3/uL (150-450); WHITE BLOOD COUNT 5.6 10^3/uL (4.0-10.0)
[2021-02-04 12:32] LABS: ALBUMIN 4.1 GM/DL (3.2-5.2); ALT/SGPT 58 U/L (12-78); BILIRUBIN,DIRECT < 0.1 MG/DL (0.0-0.2); BILIRUBIN,TOTAL 0.4 MG/DL (0.2-1.0); BLOOD UREA NITROGEN 24 MG/DL (7-18); CALCIUM LEVEL 9.2 MG/DL (8.5-10.1); CARBON DIOXIDE LEVEL 28 MEQ/L (21-32); CHLORIDE LEVEL 109 MEQ/L (98-107); CREATININE FOR GFR 1.28 MG/DL (0.70-1.30); GLOMERULAR FILTRATION RATE > 60.0 (>56); GLUCOSE, FASTING 94 MG/DL (70-100); LDH LACTATE DEHYDROGENASE 158 U/L (87-241); POTASSIUM SERUM 4.1 MEQ/L (3.5-5.1); SODIUM LEVEL 141 MEQ/L (136-145)
[2021-02-04 13:25] LABS: ERYTHROCYTE SEDIMENTATION RATE 12 mm/hr (0-20)
--- NOTE | 2021-02-04 17:52 | REP ---
INDICATION: ABNORMAL WEIGHT LOSS COMPARISON: 05/24/2010 TECHNIQUE: PA and lateral. FINDINGS: The mediastinum and cardiac silhouette are normal. The lung blancas are clear and without acute consolidation, effusion, or pneumothorax. The skeletal structures are intact and normal. Loop recorder identified overlying the left mid lung zone. IMPRESSION: No acute cardiopulmonary process. <Electronically signed by Heri Rice > 02/04/21 [id number]
== END ==
LOC: M WUC 09:38
PROVIDERS: ATTEND Nurse Practitioner Family
DX: R63.4 Abnormal weight loss (principal)

== ENCOUNTER → 2021-02-10 | Outpatient (REF) | payer BC | LOC: M WUC 16:17 | PROVIDERS: ATTEND Nurse Practitioner Family | DX: R63.4 Abnormal weight loss (principal) ==

== ENCOUNTER → 2021-02-11 | Outpatient (REF) | payer BC | LOC: M LAB REF 16:20 | PROVIDERS: ATTEND Nurse Practitioner Family | DX: R63.4 Abnormal weight loss (principal) ==

== ENCOUNTER → 2021-03-22 | Outpatient (CLI) | payer BC | LOC: M LABSMTC 09:26 | PROVIDERS: ATTEND Student in an Organized Health Care Education/Training Program | DX: Z01.812 Encounter for preprocedural laboratory examination (principal); Z20.822 Contact with and (suspected) exposure to COVID-19 ==

== ENCOUNTER → 2022-03-18 | Outpatient (CLI) | payer BC ==
[2022-03-18 14:16] LABS: CREATININE FOR GFR 1.33 MG/DL (0.70-1.30); GLOMERULAR FILTRATION RATE 58.4 (>49); POTASSIUM SERUM 3.7 MEQ/L (3.5-5.1)
== END ==
LOC: M WUC 09:34
PROVIDERS: ATTEND Orthopaedic Surgery
DX: D17.21 Benign lipomatous neoplasm of skin and subcutaneous tissue of right arm (principal); M75.111 Incomplete rotator cuff tear or rupture of right shoulder, not specified as traumatic

== ENCOUNTER → 2023-02-07 | Outpatient (CLI) | payer BC ==
[~2023-02-07] MED LIST changes: -DILT1CAP PO; +DILT300C17 PO
== END ==
LOC: M WUC 08:39
PROVIDERS: ATTEND Nurse Practitioner Family
DX: Z12.5 Encounter for screening for malignant neoplasm of prostate (principal)
CPT/HCPCS: 36415; G0103

== ENCOUNTER → 2023-06-21 | Outpatient (REF) | payer BC ==
[~2023-06-21] MED LIST changes: +IRBE300T25 PO; -IRBE300T7 PO
[2023-06-21 14:54] LABS: BASO % 0.7 % (0.0-1.0); EOS # 0.2 10^3/uL (0.0-0.5); EOS % 3.2 % (0.0-3.0); HEMOGLOBIN 14.8 g/dl (13.5-17.5); LYMPH # 1.5 10^3/uL (1.5-5.0); LYMPH % 25.4 % (24.0-44.0); MEAN CORPUSCULAR HGB CONC 32.9 g/dl (32.0-36.5); MEAN CORPUSCULAR VOLUME 88.1 fl (80.0-96.0); MONO # 0.5 10^3/uL (0.0-0.8); MONO % 8.7 % (2.0-8.0); NEUTROPHILS # 3.7 10^3/uL (1.5-8.5); NEUTROPHILS % 61.3 % (36.0-66.0); PLATELET COUNT, AUTOMATED 218 10^3/uL (150-450); RED BLOOD COUNT 5.11 10^6/uL (4.30-6.10)
[2023-06-21 14:55] LABS: ALBUMIN 4.2 G/DL (3.2-5.2); ALKALINE PHOSPHATASE 73 U/L (46-116); ALT/SGPT 40 U/L (7.0-40); AST/SGOT 17 U/L (<34); BILIRUBIN,TOTAL 0.5 MG/DL (0.3-1.2); BLOOD UREA NITROGEN 19 MG/DL (9-23); CALCIUM LEVEL 9.1 MG/DL (8.3-10.6); CARBON DIOXIDE LEVEL 31 MMOL/L (20-31); CHLORIDE LEVEL 108 MMOL/L (98-107); CREATININE FOR GFR 1.29 MG/DL (0.70-1.30); GLOMERULAR FILTRATION RATE > 60.0 (>49); GLUCOSE, FASTING 103 MG/DL (74-106); MAGNESIUM LEVEL 2.2 MG/DL (1.8-2.4); SODIUM LEVEL 139 MMOL/L (136-145); TOTAL PROTEIN 6.9 G/DL (5.7-8.2)
[2023-06-21 14:59] LABS: HEMOGLOBIN A1c 5.3 % (4.0-6.0)
[2023-06-22 09:10] LABS: LDL DIRECT 52 mg/dL (0-99)
== END ==
LOC: M LABDRWAD 13:44
PROVIDERS: ATTEND Internal Medicine Cardiovascular Disease
DX: I48.91 Unspecified atrial fibrillation (principal); E78.2 Mixed hyperlipidemia; R06.02 Shortness of breath

== ENCOUNTER 2023-10-11 06:47 | Day surgery (SDC) | payer OTHER ==
[~2023-10-11] VITALS: Ht 185.4 cm; Wt 102.5 kg
[~2023-10-11 06:47] MED LIST changes: -EPLE25TA PO; +EPLE25TA2 PO; +ROSU5TAB40 PO
[2023-10-11] MEDS: NS 1,000 ML IV ONE (07:29)
[2023-10-11] MEDS ORDERED: LIDOCAINE 2% 100MG/5ML SDV (FOR ANES.) As Ordered ONE (08:14)
[2023-10-11] MEDS ORDERED: propofoL 200 MG/20 ML VIAL As Ordered ONE (08:14)
[2023-10-11 08:45] VITALS: BP 113/67; TEMP 97.3; O2SAT 97
== END 2023-10-11 08:52 | disposition home or self-care (01) ==
LOC: M OPP 06:47
PROVIDERS: ATTEND Surgery
DX: Z12.11 Encounter for screening for malignant neoplasm of colon (principal); K57.30 Diverticulosis of large intestine without perforation or abscess without bleeding; G47.30 Sleep apnea, unspecified; I48.91 Unspecified atrial fibrillation; Z79.02 Long term (current) use of antithrombotics/antiplatelets; Z79.1 Long term (current) use of non-steroidal anti-inflammatories (NSAID); Z79.83 Long term (current) use of bisphosphonates; Z79.899 Other long term (current) drug therapy; Z88.0 Allergy status to penicillin

== ENCOUNTER → 2024-02-06 | Outpatient (CLI) | payer OTHER ==
[2024-02-06 10:22] LABS: BASO % 0.6 % (0.0-1.0); EOS # 0.1 10^3/uL (0.0-0.5); EOS % 2.2 % (0.0-3.0); HEMATOCRIT 42.6 % (42.0-52.0); HEMOGLOBIN 14.3 g/dl (13.5-17.5); LYMPH # 1.5 10^3/uL (1.5-5.0); LYMPH % 29.3 % (24.0-44.0); MEAN CORPUSCULAR HEMOGLOBIN 29.2 pg (27.0-33.0); MEAN CORPUSCULAR HGB CONC 33.6 g/dl (32.0-36.5); MEAN CORPUSCULAR VOLUME 87.1 fl (80.0-96.0); MONO # 0.5 10^3/uL (0.0-0.8); MONO % 9.4 % (2.0-8.0); NEUTROPHILS # 2.9 10^3/uL (1.5-8.5); NEUTROPHILS % 58.3 % (36.0-66.0); PLATELET COUNT, AUTOMATED 187 10^3/uL (150-450); RED BLOOD COUNT 4.89 10^6/uL (4.30-6.10)
[2024-02-06 10:56] LABS: ALBUMIN 4.5 G/DL (3.2-5.2); BILIRUBIN,TOTAL 0.5 MG/DL (0.3-1.2); CALCIUM LEVEL 8.8 MG/DL (8.3-10.6); CHOLESTEROL RISK RATIO 3.35 (<5); CREATININE FOR GFR 1.42 MG/DL (0.70-1.30); GLOMERULAR FILTRATION RATE 53.8 (>49); LDL CHOLESTEROL 67.2 MG/DL (<100); POTASSIUM SERUM 3.8 MMOL/L (3.5-5.1)
[2024-02-06 10:59] LABS: TOTAL 25(OH) VITAMIN D 28.6 NG/ML (20.0-100.0)
== END ==
LOC: M WUC 08:09
PROVIDERS: ATTEND Nurse Practitioner Family
DX: I10 Essential (primary) hypertension (principal); E78.2 Mixed hyperlipidemia; E55.9 Vitamin D deficiency, unspecified

== ENCOUNTER → 2024-02-15 | Outpatient (REF) | payer OTHER | LOC: M LAB REF 17:05 | PROVIDERS: ATTEND Physician Assistant Medical | DX: H66.91 Otitis media, unspecified, right ear (principal) ==

== ENCOUNTER → 2024-02-23 | Outpatient (REF) | payer OTHER | LOC: M LAB REF 16:43 | PROVIDERS: ATTEND Physician Assistant Medical | DX: H66.91 Otitis media, unspecified, right ear (principal) ==

== ENCOUNTER → 2024-06-21 | Outpatient (CLI) | payer OTHER ==
[~2024-06-21] MED LIST changes: +EPLE25TA15 PO; -EPLE25TA2 PO; -ROSU5TAB40 PO; +ROSU5TAB49 PO
== END ==
LOC: M WUC 09:40
PROVIDERS: ATTEND Nurse Practitioner Family
DX: R35.0 Frequency of micturition (principal)
CPT/HCPCS: 36415; G0103

== ENCOUNTER → 2024-08-09 | Outpatient (CLI) | payer OTHER ==
[2024-08-09 14:26] LABS: BASO % 0.4 % (0.0-1.0); EOS # 0.1 10^3/uL (0.0-0.5); EOS % 1.6 % (0.0-3.0); HEMATOCRIT 45.9 % (42.0-52.0); HEMOGLOBIN 15.7 g/dl (13.5-17.5); LYMPH # 1.4 10^3/uL (1.5-5.0); LYMPH % 17.7 % (24.0-44.0); MEAN CORPUSCULAR HEMOGLOBIN 29.3 pg (27.0-33.0); MEAN CORPUSCULAR HGB CONC 34.2 g/dl (32.0-36.5); MEAN CORPUSCULAR VOLUME 85.8 fl (80.0-96.0); MONO # 0.6 10^3/uL (0.0-0.8); MONO % 7.5 % (2.0-8.0); NEUTROPHILS # 5.8 10^3/uL (1.5-8.5); NEUTROPHILS % 72.6 % (36.0-66.0); PLATELET COUNT, AUTOMATED 199 10^3/uL (150-450); RED BLOOD COUNT 5.35 10^6/uL (4.30-6.10)
[2024-08-09 14:40] LABS: ERYTHROCYTE SEDIMENTATION RATE 11 mm/hr (0-20)
[2024-08-09 14:52] LABS: C REACTIVE PROTEIN QUANTITATIV < 0.50 MG/DL (<1.0)
[2024-08-09 14:53] LABS: ALBUMIN 4.4 G/DL (3.2-5.2); ALKALINE PHOSPHATASE 73 U/L (40-129); ALT/SGPT 23 U/L (7.0-40); AST/SGOT 11 U/L (<34); BILIRUBIN,TOTAL 0.6 MG/DL (0.3-1.2); BLOOD UREA NITROGEN 22 MG/DL (9-23); CALCIUM LEVEL 9.4 MG/DL (8.3-10.6); CARBON DIOXIDE LEVEL 29 MMOL/L (20-31); CHLORIDE LEVEL 104 MMOL/L (98-107); CREATININE FOR GFR 1.38 MG/DL (0.70-1.30); FERRITIN 281.9 NG/ML (10.5-307.3); FREE T4 1.12 NG/DL (0.89-1.76); GLOMERULAR FILTRATION RATE 55.6 (>49); GLUCOSE, FASTING 94 MG/DL (74-106); IRON (FE) 75 UG/DL (65-175); MAGNESIUM LEVEL 1.9 MG/DL (1.8-2.4); PERCENT SATURATION 22.9 % (19.7-50.0); POTASSIUM SERUM 4.2 MMOL/L (3.5-5.1); SODIUM LEVEL 142 MMOL/L (136-145); TOTAL 25(OH) VITAMIN D 53.9 NG/ML (20.0-100.0); TOTAL IRON BINDING CAPACITY 327 UG/DL (250-425); TOTAL PROTEIN 7.4 G/DL (5.7-8.2)
[2024-08-09 14:54] LABS: THYROID STIMULATING HORMONE 3.751 uIU/ML (0.55-4.78)
[2024-08-09 14:55] LABS: VITAMIN B12 LEVEL 513 PG/ML (211-911)
== END ==
LOC: M WUC 12:32
PROVIDERS: ATTEND Nurse Practitioner Family
DX: R20.2 Paresthesia of skin (principal)

== ENCOUNTER → 2024-11-27 | Outpatient (CLI) | payer OTHER ==
[2024-12-02 16:12] LABS: LYME TOTAL ANTIBODY CIA <= 0.90 Index (<=0.90)
== END ==
LOC: M LAB 10:15
PROVIDERS: ATTEND Physician Assistant Medical
DX: H90.3 Sensorineural hearing loss, bilateral (principal)

== ENCOUNTER → 2025-01-23 | Outpatient (CLI) | payer OTHER | LOC: M RAD 10:11 | PROVIDERS: ATTEND Nurse Practitioner Family | DX: M51.16 Intervertebral disc disorders with radiculopathy, lumbar region (principal) ==

== ENCOUNTER → 2025-01-29 | Outpatient (CLI) | payer OTHER ==
[2025-01-29 13:04] LABS: CALCIUM LEVEL 9.1 MG/DL (8.3-10.6); CARBON DIOXIDE LEVEL 33.0 MMOL/L (20-31); CHLORIDE LEVEL 104.0 MMOL/L (98-107); CREATININE FOR GFR 1.26 MG/DL (0.70-1.30); GLOMERULAR FILTRATION RATE 64.1 (>49); POTASSIUM SERUM 3.4 MMOL/L (3.5-5.1); SODIUM LEVEL 146.0 MMOL/L (136-145)
[2025-01-29 13:05] LABS: APPEARANCE, URINE CLEAR (CLEAR); BACTERIA, URINE AUTO NEGATIVE (NEGATIVE); BILIRUBIN, URINE AUTO NEGATIVE (NEGATIVE); BLOOD, URINE BLOOD 1+ (NEGATIVE); GLUCOSE, URINE (UA) AUTO NEGATIVE (NEGATIVE); KETONE, URINE AUTO NEGATIVE (NEGATIVE); LEUKOCYTE ESTERASE, URINE AUTO NEGATIVE (NEGATIVE); MUCUS, URINE SMALL (NEGATIVE); NITRITE, URINE AUTO NEGATIVE (NEGATIVE); PROTEIN, URINE AUTO NEGATIVE (NEGATIVE); RBC, URINE AUTO 1 /HPF (0-3); SPECIFIC GRAVITY URINE AUTO 1.023 (1.002-1.035); SQUAMOUS EPITHELIAL CELL UR AU 0 /HPF (0-6); UROBILINOGEN, URINE AUTO 0.2 mg/dL (0.0-2.0); WBC, URINE AUTO 0 /HPF (0-3)
== END ==
LOC: M WUC 08:25
PROVIDERS: ATTEND Nurse Practitioner Family
DX: M54.50 Low back pain, unspecified (principal); R31.9 Hematuria, unspecified

== ENCOUNTER 2025-01-30 06:52 | Emergency (ER) | payer OTHER ==
[~2025-01-30] VITALS: Ht 185.4 cm; Wt 99.9 kg
[2025-01-30 08:20] LABS: KETONE, URINE AUTO RFX NEGATIVE (NEGATIVE); LEUKOCYTE ESTERASE UR AUTO RFX NEGATIVE (NEGATIVE); MUCUS, URINE RFX SMALL (NEGATIVE); NITRITE, URINE AUTO RFX NEGATIVE (NEGATIVE); RBC, URINE AUTO RFX 2 /HPF (0-3); SQUAM EPITHELIAL CELL UR AURFX 0 /HPF (0-6); WBC, URINE AUTO RFX 0 /HPF (0-3)
[2025-01-30] MEDS: ONDANSETRON 4MG 2ML VIAL IV ONE (08:20)
[2025-01-30] MEDS ORDERED: MORPHINE 4 MG/ML 1 ML VIAL IV PRN (08:20)
[2025-01-30] MEDS: NS 500 ML IV ONE (08:53)
[2025-01-30 09:18] LABS: BASO # 0.0 10^3/uL (0.0-0.2); BASO % 0.9 % (0.0-1.0); EOS # 0.2 10^3/uL (0.0-0.5); EOS % 3.9 % (0.0-3.0); LYMPH # 1.1 10^3/uL (1.5-5.0); LYMPH % 24.7 % (24.0-44.0); MONO # 0.4 10^3/uL (0.0-0.8); MONO % 8.6 % (2.0-8.0); NEUTROPHILS # 2.7 10^3/uL (1.5-8.5); NEUTROPHILS % 61.7 % (36.0-66.0); PLATELET COUNT, AUTOMATED 169 10^3/uL (150-450)
[2025-01-30 09:29] LABS: ALT/SGPT 23.0 U/L (7.0-40); AST/SGOT 15.0 U/L (<34); CALCIUM LEVEL 9.2 MG/DL (8.3-10.6); CARBON DIOXIDE LEVEL 32.0 MMOL/L (20-31); CHLORIDE LEVEL 102.0 MMOL/L (98-107); CREATININE FOR GFR 1.2 MG/DL (0.70-1.30); GLOMERULAR FILTRATION RATE 68.0 (>49); POTASSIUM SERUM 3.4 MMOL/L (3.5-5.1); SODIUM LEVEL 143.0 MMOL/L (136-145)
[2025-01-30] MEDS ORDERED: ISOVUE-370 76% 100 ML VIAL As Ordered ONE (09:39)
[2025-01-30 13:15] VITALS: BP 128/76; TEMP 97.3
[2025-01-30 13:22] VITALS: O2SAT 98
== END 2025-01-30 13:37 | disposition home or self-care (01) ==
LOC: M ED 08:18
DX: R10.9 Unspecified abdominal pain (principal); M54.50 Low back pain, unspecified; K76.0 Fatty (change of) liver, not elsewhere classified; K40.90 Unilateral inguinal hernia, without obstruction or gangrene, not specified as recurrent; N28.1 Cyst of kidney, acquired; K57.30 Diverticulosis of large intestine without perforation or abscess without bleeding; M47.816 Spondylosis without myelopathy or radiculopathy, lumbar region; Z86.79 Personal history of other diseases of the circulatory system; Z80.0 Family history of malignant neoplasm of digestive organs; Z90.89 Acquired absence of other organs; Z79.899 Other long term (current) drug therapy
CPT/HCPCS: 36415; 71046; 72131; 74177; 80047; 80048; 80076; 81001; 83605; 83690; 85025; 93041; 99285; Q9967

== ENCOUNTER → 2025-05-12 | Outpatient (CLI) | payer OTHER ==
[2025-05-12 11:47] LABS: PLATELET COUNT, AUTOMATED 189 10^3/uL (150-450)
[2025-05-12 12:05] LABS: INR 1.03
== END ==
LOC: M WUC 08:55
PROVIDERS: ATTEND Physical Medicine & Rehabilitation
DX: Z01.818 Encounter for other preprocedural examination (principal)